=== PATIENT | female | born 1990 | race African-American/Black ===

== ENCOUNTER 2024-06-09 21:08 | Emergency (ER) | payer OTHER ==
[~2024-06-09] VITALS: Ht 177.8 cm; Wt 77.1 kg
[2024-06-09 21:34] VITALS: O2SAT 99
[2024-06-09] MEDS: ALBUTEROL FS 2.5 MG/3 ML VIAL.NEB NEB ONE (21:34)
[2024-06-09] MEDS: IPRATROPIUM NEB FS 0.5 MG/2.5 ML AMPUL.NEB NEB ONE (21:34)
[2024-06-09 21:50] VITALS: O2SAT 100
[2024-06-09] MEDS: methylPREDNISolone SOD SUCC 125 MG/2ML VIAL IV ONE (22:02)
[2024-06-09] MEDS ORDERED: ALBU8.5H8 INH (22:18)
[2024-06-09] MEDS ORDERED: PRED20TA PO (22:18)
[2024-06-09 22:29] VITALS: BP 128/79; TEMP 98.1; O2SAT 100
== END 2024-06-09 22:30 | disposition home or self-care (01) ==
LOC: ER 21:22
DX: J45.909 Unspecified asthma, uncomplicated (principal)
CPT/HCPCS: 99285; 96374; 94640; J2919